=== PATIENT | female | born 1980 | race American Indian/Alaskan Native ===

== ENCOUNTER 2016-09-18 10:52 | Emergency (ER) | payer MEDICARE ==
[2016-09-18 11:32] LABS: Basophils % (Auto) 0.4 % (0.0-1.8); Eosinophils % (Auto) 1.3 % (0.0-4.3); Hematocrit 38.5 % (30.3-42.9); Hemoglobin 11.9 gm/dl (10.1-14.3); Mean Corpuscular HGB Conc 31 % (30-34); Mean Corpuscular Volume 82 fl (79-97); Platelet Count 298 K/mm3 (140-440); Red Blood Count 4.68 M/mm3 (3.65-5.03); White Blood Count 4.4 K/mm3 (4.5-11.0)
[2016-09-18 11:34] LABS: Mean Corpuscular Hemoglobin 25 pg (28-32)
[2016-09-18 11:35] LABS: Alanine Aminotransferase 7 units/L (7-56); Albumin 4.2 g/dL (3.9-5); Albumin/Globulin Ratio 0.9 %; Alkaline Phosphatase 58 units/L (35-129); Anion Gap 20 mmol/L; Bilirubin,Total 0.6 mg/dL (0.1-1.2); Blood Urea Nitrogen 6 mg/dL (7-17); Calcium 9.1 mg/dL (8.4-10.2); Carbon Dioxide 19 mmol/L (22-30); Chloride 98.9 mmol/L (98-107); Glucose 89 mg/dL (65-100); Lipase 27 units/L (13-60); Potassium 3.6 mmol/L (3.6-5.0); Sodium 134 mmol/L (137-145)
[2016-09-18 17:52] LABS: Bilirubin,Urine NEG (Negative); Blood,Urine SM (Negative); Ketones,Urine NEG (Negative); Leukocyte Esterase,Urine LG (Negative); Mucus,Urine 3+ /HPF; Nitrite,Urine NEG (Negative); Urobilinogen,Urine < 2.0 mg/dL (<2.0)
[2016-09-18] MEDS ORDERED: DILAUDID IV ONE (19:17)
[2016-09-18] MEDS ORDERED: NACL 0.9% 1000 ML 1,000 ML IV ONE (19:17)
[2016-09-18] MEDS ORDERED: ZOFRAN IV ONE (19:17)
[2016-09-18] MEDS ORDERED: PEPCID IV ONE (19:17)
--- NOTE | 2016-09-18 19:18 | Emergency Department Report ---
ED General Adult HPI - General Chief complaint: Abdominal Pain Stated complaint: CROHNS DISEASE/VOMITTING/ABD PAIN Time Seen by Provider: 09/18/16 19:10 Source: patient, RN notes reviewed, old records reviewed Mode of arrival: Ambulatory Limitations: No Limitations - History of Present Illness Initial comments: Gastroenterology: Dr. Ammy Yoder Past medical history: Crohn's disease, right lower quadrant ostomy, not on any chronic medication at this time. This is a 36-year-old female. She is previously unknown to me. She presents to the ER complaining of epigastric, and right-sided abdominal pain. Abdominal pain is epigastric and upper. It is present for a few days. It feels consistent with prior episodes of Crohn's disease pain as per the patient. Mild nausea. Patient reports liquid discharge from her ostomy. There is no hematemesis. There is no bright red blood. No vaginal discharge. No irritative or obstructive urinary symptoms. Patient reports her symptoms typically improve with IV fluids, nausea medication and hydromorphone. Of note , patient has had multiple similar visits for this presentation in the past year. -: Gradual Location: abdomen Radiation: non-radiation Quality: aching Consistency: constant Improves with: medication, rest Worsens with: movement Associated Symptoms: loss of appetite, nausea/vomiting. denies: diaphoresis, fever/chills - Related Data Previous Rx's Medication Instructions Recorded Last Taken Type Ondansetron [Zofran Odt] 4 mg PO Q8H PRN #10 tab.rapdis 06/27/16 Unknown Rx oxyCODONE /ACETAMINOPHEN [Percocet 1 tab PO Q6HR PRN #14 tablet 06/27/16 Unknown Rx 5/325] Dicyclomine [Bentyl] 10 mg PO QID PRN #20 capsule 09/18/16 Unknown Rx Ondansetron [Zofran Odt] 4 mg PO QID PRN #20 tab.rapdis 09/18/16 Unknown Rx Allergies Allergy/AdvReac Type Severity Reaction Status Date / Time aspirin Allergy Itching Verified 06/27/16 05:40 ibuprofen [From Motrin] Allergy Rash Verified 06/27/16 05:40 infliximab [From Remicade] Allergy ITCHING Verified 06/27/16 05:40 AND SWELLING morphine Allergy Rash Verified 06/27/16 05:40 naproxen sodium [From Aleve] Allergy Itching Verified 06/27/16 05:40 ED Review of Systems ROS: Stated complaint: CROHNS DISEASE/VOMITTING/ABD PAIN Other details as noted in HPI Constitutional: denies: fever, malaise Eyes: denies: eye discharge Respiratory: denies: cough Cardiovascular: denies: chest pain Gastrointestinal: abdominal pain Genitourinary: denies: dysuria Musculoskeletal: denies: back pain Skin: denies: lesions Neurological: denies: weakness Psychiatric: as per HPI ED Past Medical Hx - Past Medical History Previous Medical History?: Yes Hx Hypertension: No Hx Heart Attack/AMI: No Hx Congestive Heart Failure: No Hx GERD: Yes (RARELY) Hx Renal Disease: No Hx Arthritis: Yes (lower back) Hx Seizures: No Hx Asthma: Yes (mild case) Hx HIV: No Additional medical history: Crohn's - Surgical History Past Surgical History?: Yes Hx Pacemaker: No Hx Internal Defibrillator: No Hx Cholecystectomy: Yes Hx Breast Surgery: Yes (Breast reduction) Additional Surgical History: bowel resection & colostomy 2003. Proctocolectomy with ileostomy placement January 2015 - Social History Smoking Status: Never Smoker Substance Use Type: None - Medications Home Medications: Home Medications Medication Instructions Recorded Confirmed Last Taken Type Ondansetron [Zofran Odt] 4 mg PO Q8H PRN #10 tab.rapdis 06/27/16 Unknown Rx oxyCODONE /ACETAMINOPHEN [Percocet 1 tab PO Q6HR PRN #14 tablet 06/27/16 Unknown Rx 5/325] Dicyclomine [Bentyl] 10 mg PO QID PRN #20 capsule 09/18/16 Unknown Rx Ondansetron [Zofran Odt] 4 mg PO QID PRN #20 tab.rapdis 09/18/16 Unknown Rx ED Physical Exam - General Limitations: No Limitations General appearance: alert, in no apparent distress - Head Head exam: Present: atraumatic, normocephalic - Eye Eye exam: Present: normal appearance, EOMI. Absent: nystagmus - ENT ENT exam: Present: normal exam, normal orophraynx, mucous membranes moist, normal external ear exam - Neck Neck exam: Present: normal inspection, full ROM. Absent: tenderness, meningismus - Respiratory Respiratory exam: Present: normal lung sounds bilaterally. Absent: respiratory distress, wheezes, rales, rhonchi, stridor, chest wall tenderness - Cardiovascular Cardiovascular Exam: Present: regular rate, normal rhythm, normal heart sounds. Absent: bradycardia, tachycardia, irregular rhythm, systolic murmur, diastolic murmur, rubs, gallop - GI/Abdominal GI/Abdominal exam: Present: soft, tenderness (there is minimal epigastric tenderness. There is no lower abdominal tenderness. There is no right upper quadrant tenderness. There is negative Ambrose sign.), normal bowel sounds, other (right lower quadrant ostomy noted. No redness, pus or streaking.). Absent: distended, guarding, rebound, rigid, pulsatile mass - Extremities Exam Extremities exam: Present: normal inspection, full ROM, normal capillary refill. Absent: tenderness, pedal edema, joint swelling, calf tenderness - Back Exam Back exam: Present: normal inspection, full ROM. Absent: tenderness, CVA tenderness (R), CVA tenderness (L), muscle spasm, paraspinal tenderness, vertebral tenderness - Neurological Exam Neurological exam: Present: alert, oriented X3, normal gait, other (Extraocular movements intact. Tongue midline. No facial droop. Facial sensation intact to light touch in the V1, V2, V3 distribution bilaterally. 5 and 5 strength in 4 extremities.. Sensation is intact to light touch in 4 extremities.). Absent : motor sensory deficit - Psychiatric Psychiatric exam: Present: normal affect, normal mood - Skin Skin exam: Present: warm, dry, intact, normal color. Absent: rash ED Course Vital Signs 09/18/16 09/18/16 09/18/16 10:56 19:17 20:01 Temperature 98.1 F 97.8 F Pulse Rate 111 H 87 Respiratory 18 14 Rate Blood Pressure 115/79 Blood Pressure 106/69 [Left] O2 Sat by Pulse 100 97 97 Oximetry 09/18/16 23:00 Temperature 98.7 F Pulse Rate 92 H Respiratory 18 Rate Blood Pressure Blood Pressure 122/67 [Left] O2 Sat by Pulse 99 Oximetry - Reevaluation(s) Reevaluation #1: 09/18/16 20:42 Differential diagnosis: Cyclic vomiting syndrome, narcotic bowel syndrome, urinary tract infection, Crohn's flare, GERD/gastritis Assessment and plan: 36-year-old female with an acute flare of her chronic abdominal pain. She has had multiple evaluations for this in the past. She is afebrile with reassuring vital signs. When I walk into the room, she is playing on the cellular phone with no active vomiting. Her abdominal examination is benign. Laboratory studies are unremarkable. Urinalysis is contaminated, patient denies urinary symptoms. She felt improved after symptomatically therapy. I don't believe she requires advanced imaging at this time, as she has presented multiple times for similar complaints in the past. She will be discharged with pain medication, nausea medication, instructions to follow up with outpatient gastroenterology. She is clinically sober, does not appear to be drug seeking, walked with a steady gait. ED Medical Decision Making - Lab Data Result diagrams: 09/18/16 11:06 09/18/16 11:06 Vital Signs 09/18/16 09/18/16 09/18/16 10:56 19:17 20:01 Temperature 98.1 F 97.8 F Pulse Rate 111 H 87 Respiratory 18 14 Rate Blood Pressure 115/79 Blood Pressure 106/69 [Left] O2 Sat by Pulse 100 97 97 Oximetry Labs 09/18/16 09/18/16 09/18/16 11:06 11:06 16:45 WBC 4.4 L RBC 4.68 Hgb 11.9 Hct 38.5 MCV 82 MCH 25 L MCHC 31 RDW 19.0 H Plt Count 298 Lymph % (Auto) 38.8 H [place] % (Auto) 9.1 H Eos % (Auto) 1.3 Baso % (Auto) 0.4 Lymph # 1.7 [place] # 0.4 Eos # 0.1 Baso # 0.0 Seg Neutrophils % 50.4 Seg Neutrophils # 2.2 Sodium 134 L Potassium 3.6 Chloride 98.9 Carbon Dioxide 19 L Anion Gap 20 BUN 6 L Creatinine 0.5 L Estimated GFR > 60 BUN/Creatinine Ratio 12.00 Glucose 89 Calcium 9.1 Total Bilirubin 0.6 AST 18 ALT 7 Alkaline Phosphatase 58 Total Protein 9.0 H Albumin 4.2 Albumin/Globulin Ratio 0.9 Lipase 27 Urine Color Yellow Urine Turbidity Slightly-cloudy Urine pH 6.0 Ur Specific [place] 1.020 Urine Protein 30 mg/dl Urine Glucose (UA) Neg Urine Ketones Neg Urine Blood Sm Urine Nitrite Neg Urine Bilirubin Neg Urine Urobilinogen < 2.0 Ur Leukocyte Esterase Lg Urine WBC (Auto) 8.0 H Urine RBC (Auto) 3.0 U Epithel Cells (Auto) 25.0 H Urine Mucus 3+ Urine HCG, Qual Negative Critical care attestation.: If time is entered above; I have spent that time in minutes in the direct care of this critically ill patient, excluding procedure time. ED Disposition Clinical Impression: Abdominal pain Qualifiers: Abdominal location: generalized Qualified Code(s): R10.84 - Generalized abdominal pain Disposition: DISCHARGED TO HOME OR SELFCARE Is pt being admited?: No Does the pt Need Aspirin: No Condition: Good Instructions: Abdominal Pain (ED) Additional Instructions: Take pain medication, nausea medication as directed. Follow up with a primary care doctor or product technician within the next week. Return to the ER right away with new pain, worsening pain, migration of pain, fevers or chills, nausea or vomiting, inability to tolerate liquid feeds. Prescriptions: Dicyclomine [Bentyl] 10 mg PO QID PRN #20 capsule PRN Reason: Pain Ondansetron [Zofran Odt] 4 mg PO QID PRN #20 tab.rapdis PRN Reason: Nausea Referrals: AMMY YODER MD [Primary Care Provider] - 3-5 Days
[2016-09-18 23:43] VITALS: BP 122/67
== END 2016-09-18 22:35 | disposition home or self-care (01) ==
LOC: ED 10:52
DX: R10.84 Generalized abdominal pain (principal); K21.9 Gastro-esophageal reflux disease without esophagitis; M19.90 Unspecified osteoarthritis, unspecified site; J45.909 Unspecified asthma, uncomplicated; K50.90 Crohn's disease, unspecified, without complications; Z90.89 Acquired absence of other organs; Z90.49 Acquired absence of other specified parts of digestive tract; Z88.6 Allergy status to analgesic agent; Z88.8 Allergy status to other drugs, medicaments and biological substances
CPT/HCPCS: 36415; 80053; 81001; 81025; 83690; 85025; 96361; 96374; 96375; 99283; J1170; J2405; J7030

== ENCOUNTER 2016-11-23 07:34 | Emergency (ER) | payer MEDICARE ==
[2016-11-23 07:43] VITALS: BP 114/80
[2016-11-23 08:17] LABS: Basophils % (Auto) 0.4 % (0.0-1.8); Hematocrit 38.5 % (30.3-42.9); Hemoglobin 12.2 gm/dl (10.1-14.3); Mean Corpuscular HGB Conc 32 % (30-34); Mean Corpuscular Hemoglobin 27 pg (28-32); Mean Corpuscular Volume 86 fl (79-97); Platelet Count 269 K/mm3 (140-440); Red Blood Count 4.47 M/mm3 (3.65-5.03); Red Cell Distribution Width 19.3 % (13.2-15.2); White Blood Count 8.3 K/mm3 (4.5-11.0)
[2016-11-23 08:33] LABS: Bilirubin,Urine NEG (Negative); Blood,Urine NEG (Negative); Ketones,Urine TR mg/dL (Negative); Leukocyte Esterase,Urine SM (Negative); Mucus,Urine 3+ /HPF; Nitrite,Urine NEG (Negative); Urobilinogen,Urine < 2.0 mg/dL (<2.0)
[2016-11-23 08:41] LABS: Alanine Aminotransferase 9 units/L (7-56); Albumin 4.4 g/dL (3.9-5); Albumin/Globulin Ratio 1.1 %; Alkaline Phosphatase 60 units/L (35-129); Anion Gap 20 mmol/L; Bilirubin,Total 0.5 mg/dL (0.1-1.2); Blood Urea Nitrogen 12 mg/dL (7-17); Calcium 9.8 mg/dL (8.4-10.2); Carbon Dioxide 24 mmol/L (22-30); Chloride 100.4 mmol/L (98-107); Glucose 91 mg/dL (65-100); Lipase 23 units/L (13-60); Potassium 4.1 mmol/L (3.6-5.0); Sodium 140 mmol/L (137-145); Total Protein 8.5 g/dL (6.3-8.2)
--- NOTE | 2016-11-24 14:57 | ED Elopement Review ---
ED Pt Elopement review - Results review Lab results: Laboratory Tests 11/23/16 11/23/16 11/23/16 07:51 07:51 07:57 WBC 8.3 RBC 4.47 Hgb 12.2 Hct 38.5 MCV 86 MCH 27 L MCHC 32 RDW 19.3 H Plt Count 269 Lymph % (Auto) 25.2 [place] % (Auto) 7.8 H Eos % (Auto) 2.0 Baso % (Auto) 0.4 Lymph # 2.1 [place] # 0.6 Eos # 0.2 Baso # 0.0 Seg Neutrophils % 64.6 Seg Neutrophils # 5.3 Sodium 140 Potassium 4.1 Chloride 100.4 Carbon Dioxide 24 Anion Gap 20 BUN 12 Creatinine 0.6 L Estimated GFR > 60 BUN/Creatinine Ratio 20.00 Glucose 91 Calcium 9.8 Total Bilirubin 0.5 AST 13 ALT 9 Alkaline Phosphatase 60 Total Protein 8.5 H Albumin 4.4 Albumin/Globulin Ratio 1.1 Lipase 23 Urine Color Yellow Urine Turbidity Clear Urine pH 5.0 Ur Specific [place] 1.031 H Urine Protein 30 mg/dl Urine Glucose (UA) Neg Urine Ketones Tr Urine Blood Neg Urine Nitrite Neg Urine Bilirubin Neg Urine Urobilinogen < 2.0 Ur Leukocyte Esterase Sm Urine WBC (Auto) 4.0 Urine RBC (Auto) 3.0 U Epithel Cells (Auto) 3.0 Urine Mucus 3+ Urine HCG, Qual Negative - Call Back decision Pt Call Back Decision: Call pt to return to ED KARY (abdominal pain and tachycardia should be further evaluated)
== END 2016-11-24 00:53 | disposition left against medical advice (07) ==
LOC: ED 07:34
DX: R10.9 Unspecified abdominal pain (principal); R11.0 Nausea; Z53.21 Procedure and treatment not carried out due to patient leaving prior to being seen by health care provider
CPT/HCPCS: 36415; 80053; 81001; 81025; 83690; 85025

== ENCOUNTER 2016-11-25 04:02 | Emergency (ER) | payer MEDICARE ==
[2016-11-25] MEDS ORDERED: TYLENOL PO ONE (04:27)
[2016-11-25 05:09] LABS: Basophils % (Auto) 0.4 % (0.0-1.8); Eosinophils % (Auto) 1.4 % (0.0-4.3); Hemoglobin 12.3 gm/dl (10.1-14.3); White Blood Count 6.4 K/mm3 (4.5-11.0)
[2016-11-25 05:14] LABS: Alanine Aminotransferase 10 units/L (7-56); Albumin 4.3 g/dL (3.9-5); Albumin/Globulin Ratio 1.1 %; Alkaline Phosphatase 59 units/L (35-129); Anion Gap 18 mmol/L; Bilirubin,Total 0.3 mg/dL (0.1-1.2); Blood Urea Nitrogen 12 mg/dL (7-17); Calcium 9.1 mg/dL (8.4-10.2); Carbon Dioxide 24 mmol/L (22-30); Chloride 97.4 mmol/L (98-107); Glucose 94 mg/dL (65-100); Potassium 3.5 mmol/L (3.6-5.0); Sodium 136 mmol/L (137-145); Total Protein 8.3 g/dL (6.3-8.2)
[2016-11-25 05:16] LABS: Mean Corpuscular HGB Conc 32 % (30-34); Mean Corpuscular Hemoglobin 28 pg (28-32); Mean Corpuscular Volume 87 fl (79-97); Platelet Count 290 K/mm3 (140-440); Red Blood Count 4.48 M/mm3 (3.65-5.03); Red Cell Distribution Width 19.1 % (13.2-15.2)
--- NOTE | 2016-11-25 07:32 | Emergency Department Report ---
ED General Adult HPI - General Chief complaint: Abdominal Pain Stated complaint: ABDOMINAL PAIN, NAUSEA Time Seen by Provider: 11/25/16 06:26 Source: patient Mode of arrival: Ambulatory Limitations: No Limitations - History of Present Illness Initial comments: The patient has a history of Crohn's disease with a colostomy. She complains of a vague intermittent abdominal pain which is been present for 4 days. It is mostly towards the right side of her abdomen. She had a previous CT for similar pain in the past and it was negative and 2015. She denies any signs of GI bleeding. She denies nausea vomiting or fever. She came here 2 days ago and had essentially normal laboratory tests. She did not wait for exam. She states that she called Dr. Yoder office and was directed to come to the emergency department because he is out of town. -: days(s) Location: abdomen, right Radiation: non-radiation Quality: aching Consistency: intermittent Improves with: none Worsens with: none Associated Symptoms: denies other symptoms Treatments Prior to Arrival: none - Related Data Previous Rx's Medication Instructions Recorded Last Taken Type Ondansetron [Zofran Odt] 4 mg PO Q8H PRN #10 tab.rapdis 06/27/16 Unknown Rx oxyCODONE /ACETAMINOPHEN [Percocet 1 tab PO Q6HR PRN #14 tablet 06/27/16 Unknown Rx 5/325] Dicyclomine [Bentyl] 10 mg PO QID PRN #20 capsule 09/18/16 Unknown Rx Ondansetron [Zofran Odt] 4 mg PO QID PRN #20 tab.rapdis 09/18/16 Unknown Rx Dicyclomine [Bentyl] 10 mg PO QID #7 capsule 11/25/16 Unknown Rx HYDROcodone/APAP 5-325 [[place] 1 each PO Q4HR PRN #10 tablet 11/25/16 Unknown Rx 5/325] Ondansetron [Zofran Odt] 4 mg PO Q8H PRN #7 tab.rapdis 11/25/16 Unknown Rx Allergies Allergy/AdvReac Type Severity Reaction Status Date / Time aspirin Allergy Itching Verified 06/27/16 05:40 ibuprofen [From Motrin] Allergy Rash Verified 06/27/16 05:40 infliximab [From Remicade] Allergy ITCHING Verified 06/27/16 05:40 AND SWELLING morphine Allergy Rash Verified 06/27/16 05:40 naproxen sodium [From Aleve] Allergy Itching Verified 06/27/16 05:40 ED Review of Systems ROS: Stated complaint: ABDOMINAL PAIN, NAUSEA Other details as noted in HPI Constitutional: denies: chills, fever Eyes: denies: eye pain, eye discharge, vision change ENT: denies: ear pain, throat pain Respiratory: denies: cough, shortness of breath, wheezing Cardiovascular: denies: chest pain, palpitations Endocrine: no symptoms reported Gastrointestinal: as per HPI, abdominal pain. denies: nausea, vomiting, diarrhea, constipation, hematemesis, melena, hematochezia Genitourinary: denies: urgency, dysuria, discharge Musculoskeletal: denies: back pain, joint swelling, arthralgia Skin: denies: rash, lesions Neurological: denies: headache, weakness, paresthesias Psychiatric: denies: anxiety, depression Hematological/Lymphatic: denies: easy bleeding, easy bruising ED Past Medical Hx - Past Medical History Previous Medical History?: Yes Hx Hypertension: No Hx Heart Attack/AMI: No Hx Congestive Heart Failure: No Hx GERD: Yes (RARELY) Hx Renal Disease: No Hx Arthritis: Yes (lower back) Hx Seizures: No Hx Asthma: Yes (mild case) Hx HIV: No Additional medical history: Crohn's - Surgical History Past Surgical History?: Yes Hx Pacemaker: No Hx Internal Defibrillator: No Hx Cholecystectomy: Yes Hx Breast Surgery: Yes (Breast reduction) Additional Surgical History: bowel resection & colostomy 2003. Proctocolectomy with ileostomy placement January 2015 - Social History Smoking Status: Never Smoker Substance Use Type: None - Medications Home Medications: Home Medications Medication Instructions Recorded Confirmed Last Taken Type Ondansetron [Zofran Odt] 4 mg PO Q8H PRN #10 tab.rapdis 06/27/16 Unknown Rx oxyCODONE /ACETAMINOPHEN [Percocet 1 tab PO Q6HR PRN #14 tablet 06/27/16 Unknown Rx 5/325] Dicyclomine [Bentyl] 10 mg PO QID PRN #20 capsule 09/18/16 Unknown Rx Ondansetron [Zofran Odt] 4 mg PO QID PRN #20 tab.rapdis 09/18/16 Unknown Rx Dicyclomine [Bentyl] 10 mg PO QID #7 capsule 11/25/16 Unknown Rx HYDROcodone/APAP 5-325 [[place] 1 each PO Q4HR PRN #10 tablet 11/25/16 Unknown Rx 5/325] Ondansetron [Zofran Odt] 4 mg PO Q8H PRN #7 tab.rapdis 11/25/16 Unknown Rx ED Physical Exam - General Limitations: No Limitations General appearance: alert, in no apparent distress - Head Head exam: Present: atraumatic, normocephalic - Eye Eye exam: Present: normal appearance, PERRL, EOMI. Absent: scleral icterus - ENT ENT exam: Present: normal exam, mucous membranes moist - Neck Neck exam: Present: normal inspection - Respiratory Respiratory exam: Present: normal lung sounds bilaterally. Absent: respiratory distress - Cardiovascular Cardiovascular Exam: Present: regular rate, normal rhythm. Absent: systolic murmur, diastolic murmur, rubs, gallop - GI/Abdominal GI/Abdominal exam: Present: soft, normal bowel sounds, other (the ostomy is producing normal stool the site looks normal). Absent: distended, tenderness, guarding, rebound, rigid - Rectal Rectal exam: Present: deferred - Extremities Exam Extremities exam: Present: normal inspection - Back Exam Back exam: Present: normal inspection - Neurological Exam Neurological exam: Present: alert, oriented X3, CN II-XII intact. Absent: motor sensory deficit - Psychiatric Psychiatric exam: Present: normal affect, normal mood - Skin Skin exam: Present: warm, dry, intact, normal color. Absent: rash ED Course Vital Signs 11/25/16 11/25/16 11/25/16 04:19 04:30 06:24 Temperature 98.3 F Pulse Rate 100 H 81 Respiratory 20 20 18 Rate Blood Pressure 106/79 Blood Pressure 112/75 [Left] O2 Sat by Pulse 100 100 Oximetry ED Medical Decision Making - Lab Data Result diagrams: 11/25/16 04:34 11/25/16 04:34 Laboratory Results - last 24 hr 11/25/16 11/25/16 04:34 04:34 WBC 6.4 RBC 4.48 Hgb 12.3 Hct 39.0 MCV 87 MCH 28 MCHC 32 RDW 19.1 H Plt Count 290 Lymph % (Auto) 42.2 H [place] % (Auto) 7.4 H Eos % (Auto) 1.4 Baso % (Auto) 0.4 Lymph # 2.7 [place] # 0.5 Eos # 0.1 Baso # 0.0 Seg Neutrophils % 48.6 Seg Neutrophils # 3.1 Sodium 136 L Potassium 3.5 L Chloride 97.4 L Carbon Dioxide 24 Anion Gap 18 BUN 12 Creatinine 0.6 L Estimated GFR > 60 BUN/Creatinine Ratio 20.00 Glucose 94 Calcium 9.1 Total Bilirubin 0.3 AST 14 ALT 10 Alkaline Phosphatase 59 Total Protein 8.3 H Albumin 4.3 Albumin/Globulin Ratio 1.1 - Medical Decision Making Patient has had 2 sets of essentially normal labs except for a slight to low normal sodium and potassium. I do not find criteria for a Crohn's flare. She will be treated with symptomatic medication and referred to her GI physician with appropriate return criteria. Critical care attestation.: If time is entered above; I have spent that time in minutes in the direct care of this critically ill patient, excluding procedure time. ED Disposition Clinical Impression: Crohns disease Qualifiers: Gastrointestinal tract location: unspecified location Digestive disease complication type: without complication Qualified Code(s): K50.90 - Crohn's disease, unspecified, without complications Abdominal pain Qualifiers: Abdominal location: generalized Qualified Code(s): R10.84 - Generalized abdominal pain Disposition: DISCHARGED TO HOME OR SELFCARE Is pt being admited?: No Does the pt Need Aspirin: No Condition: Stable Instructions: Abdominal Pain (ED), Crohn Disease (ED) Additional Instructions: Return any acute change or problem particularly if there is fever vomiting or increased pain. Rx as directed. Follow-up with Dr. Yoder group. Prescriptions: Dicyclomine [Bentyl] 10 mg PO QID #7 capsule HYDROcodone/APAP 5-325 [[place] 5/325] 1 each PO Q4HR PRN #10 tablet PRN Reason: Pain Ondansetron [Zofran Odt] 4 mg PO Q8H PRN #7 tab.rapdis PRN Reason: Nausea Referrals: PRIMARY CARE, [Primary Care Provider] - 3-5 Days AMMY YODER MD [Staff Physician] - 2-3 Days Time of Disposition: 07:32
[2016-11-25] MEDS ORDERED: ZOFRAN ODT PO ONE (07:36)
[2016-11-25] MEDS ORDERED: PERCOCET 5/325 PO ONE (07:36)
[2016-11-25 08:13] VITALS: BP 113/75
[2016-11-25 08:36] LABS: Bilirubin,Urine NEG (Negative); Blood,Urine NEG (Negative); Ketones,Urine NEG (Negative); Leukocyte Esterase,Urine MOD (Negative); Mucus,Urine 3+ /HPF; Nitrite,Urine NEG (Negative); Urobilinogen,Urine < 2.0 mg/dL (<2.0)
== END 2016-11-25 08:14 | disposition home or self-care (01) ==
LOC: ED 04:02
DX: K50.90 Crohn's disease, unspecified, without complications (principal); R10.84 Generalized abdominal pain; K21.9 Gastro-esophageal reflux disease without esophagitis; J45.909 Unspecified asthma, uncomplicated; M19.90 Unspecified osteoarthritis, unspecified site; Z88.5 Allergy status to narcotic agent; Z88.8 Allergy status to other drugs, medicaments and biological substances; Z88.6 Allergy status to analgesic agent
CPT/HCPCS: 36415; 80053; 81001; 81025; 85025; 99283; Q0162

== ENCOUNTER 2019-07-16 08:34 | Emergency (ER) | payer MEDICARE ==
[2019-07-16 09:45] LABS: Bacteria,Urine 1+ /HPF (Negative); Bilirubin,Urine NEG (Negative); Blood,Urine SM (Negative); Color,Urine Yellow (Yellow); Mucus,Urine 1+ /HPF; Protein,Urine <15 mg/dL mg/dL (Negative); Urobilinogen,Urine < 2.0 mg/dL (<2.0)
[2019-07-16 09:52] LABS: HCG Qualitative,Urine Negative (Negative)
[2019-07-16] MEDS ORDERED: FAMOTIDINE 20 MG/2 ML INJ IV ONE (09:56)
[2019-07-16] MEDS ORDERED: dexAMETHasone 20 MG/5 ML VIAL IV ONE (09:56)
[2019-07-16] MEDS ORDERED: SODIUM CHLORIDE 0.9% 1000 ML 1,000 ML IV ONE ×2 (09:56→11:44)
[2019-07-16] MEDS ORDERED: ONDANSETRON 4 MG/2 ML INJ IV ONE (09:57)
[2019-07-16] MEDS ORDERED: HYDROmorphone 1 MG/1 ML INJ IV ONE ×2 (09:59→12:45)
--- NOTE | 2019-07-16 10:08 | Emergency Department Report ---
ED Abdominal Pain HPI - General Chief Complaint: Abdominal Pain Stated Complaint: N/V/ABD PAIN Time Seen by Provider: 07/16/19 09:43 Source: patient Mode of arrival: Ambulatory Limitations: No Limitations - History of Present Illness Initial Comments: 39-year-old -[place] female patient with history of Crohn's disease and colostomy bag presents with complaints of mid abdominal pain and nausea and vomiting or the last 2-3 days. Patient follows with Dr. Vuong, gastroenterology. She rates her pain as a 8/10 in severity and describes it as sharp. She denies any hematemesis/off recurrent emesis, melena/hematochezia in her colostomy bag, cough/congestion, chest pain, or fever/chills/sweats. Patient states this feels like a Crohn's flare. - Related Data Previous Rx's Medication Instructions Recorded Last Taken Type Ondansetron [Zofran Odt] 4 mg PO Q8H PRN #10 tab.rapdis 06/27/16 Unknown Rx oxyCODONE /ACETAMINOPHEN [Percocet 1 tab PO Q6HR PRN #14 tablet 06/27/16 Unknown Rx 5/325] Dicyclomine [Bentyl] 10 mg PO QID PRN #20 capsule 09/18/16 Unknown Rx Ondansetron [Zofran Odt] 4 mg PO QID PRN #20 tab.rapdis 09/18/16 Unknown Rx Dicyclomine [Bentyl] 10 mg PO QID #7 capsule 11/25/16 Unknown Rx HYDROcodone/APAP 5-325 [[place] 1 each PO Q4HR PRN #10 tablet 11/25/16 Unknown Rx 5/325] Ondansetron [Zofran Odt] 4 mg PO Q8H PRN #7 tab.rapdis 11/25/16 Unknown Rx Ondansetron [Zofran Odt] 4 mg PO Q6HR PRN #15 tab.rapdis 07/16/19 Unknown Rx Sulfamethoxazole/Trimethoprim 1 each PO BID 3 Days #6 tablet 07/16/19 Unknown Rx [Bactrim DS TAB] Allergies Allergy/AdvReac Type Severity Reaction Status Date / Time aspirin Allergy Itching Verified 07/16/19 08:37 ibuprofen [From Motrin] Allergy Rash Verified 07/16/19 08:37 infliximab [From Remicade] Allergy ITCHING Verified 07/16/19 08:37 AND SWELLING morphine Allergy Rash Verified 07/16/19 08:37 naproxen sodium [From Aleve] Allergy Itching Verified 07/16/19 08:37 ED Review of Systems ROS: Stated complaint: N/V/ABD PAIN Other details as noted in HPI Comment: All other systems reviewed and negative Constitutional: denies: chills, fever Gastrointestinal: as per HPI ED Past Medical Hx - Past Medical History Previous Medical History?: Yes Hx Hypertension: No Hx Heart Attack/AMI: No Hx Congestive Heart Failure: No Hx GERD: Yes (RARELY) Hx Renal Disease: No Hx Arthritis: Yes (lower back) Hx Seizures: No Hx Asthma: Yes (mild case) Hx HIV: No Additional medical history: Crohn's - Surgical History Past Surgical History?: Yes Hx Pacemaker: No Hx Internal Defibrillator: No Hx Cholecystectomy: Yes Hx Breast Surgery: Yes (Breast reduction) Additional Surgical History: bowel resection & colostomy 2003. Proctocolectomy with ileostomy placement January 2015 - Social History Smoking Status: Unknown if ever smoked Substance Use Type: None - Medications Home Medications: Home Medications Medication Instructions Recorded Confirmed Last Taken Type Ondansetron [Zofran Odt] 4 mg PO Q8H PRN #10 tab.rapdis 06/27/16 Unknown Rx oxyCODONE /ACETAMINOPHEN [Percocet 1 tab PO Q6HR PRN #14 tablet 06/27/16 Unknown Rx 5/325] Dicyclomine [Bentyl] 10 mg PO QID PRN #20 capsule 09/18/16 Unknown Rx Ondansetron [Zofran Odt] 4 mg PO QID PRN #20 tab.rapdis 09/18/16 Unknown Rx Dicyclomine [Bentyl] 10 mg PO QID #7 capsule 11/25/16 Unknown Rx HYDROcodone/APAP 5-325 [[place] 1 each PO Q4HR PRN #10 tablet 11/25/16 Unknown Rx 5/325] Ondansetron [Zofran Odt] 4 mg PO Q8H PRN #7 tab.rapdis 11/25/16 Unknown Rx Ondansetron [Zofran Odt] 4 mg PO Q6HR PRN #15 tab.rapdis 07/16/19 Unknown Rx Sulfamethoxazole/Trimethoprim 1 each PO BID 3 Days #6 tablet 07/16/19 Unknown Rx [Bactrim DS TAB] ED Physical Exam - General Limitations: No Limitations General appearance: alert, in no apparent distress - Head Head exam: Present: atraumatic, normocephalic - Eye Eye exam: Present: normal appearance, PERRL. Absent: scleral icterus - ENT ENT exam: Present: normal orophraynx, mucous membranes moist - Neck Neck exam: Present: normal inspection - Respiratory Respiratory exam: Present: normal lung sounds bilaterally. Absent: respiratory distress - Cardiovascular Cardiovascular Exam: Present: normal rhythm, tachycardia. Absent: systolic murmur, diastolic murmur, rubs, gallop - GI/Abdominal GI/Abdominal exam: Present: soft, tenderness, other (no BRB or melena noted in c olostomy bag). Absent: distended, rebound, rigid - Extremities Exam Extremities exam: Present: normal inspection - Back Exam Back exam: Present: normal inspection. Absent: CVA tenderness (L) - Neurological Exam Neurological exam: Present: alert, oriented X3 - Psychiatric Psychiatric exam: Present: normal affect, normal mood - Skin Skin exam: Present: warm, dry, intact, normal color. Absent: rash ED Course Vital Signs 07/16/19 08:41 Temperature 98.6 F Pulse Rate 105 H Respiratory 22 Rate Blood Pressure 124/70 O2 Sat by Pulse 99 Oximetry ED Medical Decision Making - Lab Data Result diagrams: 07/16/19 11:08 07/16/19 11:08 Lab Results 07/16/19 07/16/19 07/16/19 Range/Units 09:02 11:08 11:08 WBC 7.0 (4.5-11.0) K/mm3 RBC 4.02 (3.65-5.03) M/mm3 Hgb 11.2 (10.1-14.3) gm/dl Hct 34.5 (30.3-42.9) % MCV 86 (79-97) fl MCH 28 (28-32) pg MCHC 32 (30-34) % RDW 15.9 H (13.2-15.2) % Plt Count 252 (140-440) K/mm3 Lymph % (Auto) 17.9 (13.4-35.0) % [place] % (Auto) 7.7 H (0.0-7.3) % Eos % (Auto) 1.2 (0.0-4.3) % Baso % (Auto) 0.4 (0.0-1.8) % Lymph # 1.3 (1.2-5.4) K/mm3 [place] # 0.5 (0.0-0.8) K/mm3 Eos # 0.1 (0.0-0.4) K/mm3 Baso # 0.0 (0.0-0.1) K/mm3 Seg Neutrophils % 72.8 H (40.0-70.0) % Seg Neutrophils # 5.1 (1.8-7.7) K/mm3 Sodium 135 L (137-145) mmol/L Potassium 4.0 (3.6-5.0) mmol/L Chloride 96.0 L (98-107) mmol/L Carbon Dioxide 22 (22-30) mmol/L Anion Gap 21 mmol/L BUN 6 L (7-17) mg/dL Creatinine 0.6 L (0.7-1.2) mg/dL Estimated GFR > 60 ml/min BUN/Creatinine Ratio 10 % Glucose 95 (65-100) mg/dL Calcium 9.2 (8.4-10.2) mg/dL Total Bilirubin 0.40 (0.1-1.2) mg/dL AST 21 (5-40) units/L ALT 10 (7-56) units/L Alkaline Phosphatase 68 (35-129) units/L Total Protein 9.0 H (6.3-8.2) g/dL Albumin 4.4 (3.9-5) g/dL Albumin/Globulin Ratio 1.0 % Lipase (13-60) units/L Urine Color Yellow (Yellow) Urine Turbidity Slightly-cloudy (Clear) Urine pH 6.0 (5.0-7.0) Ur Specific [place] 1.016 (1.003-1.030) Urine Protein <15 mg/dl (Negative) mg/dL Urine Glucose (UA) Neg (Negative) mg/dL Urine Ketones Neg (Negative) mg/dL Urine Blood Sm (Negative) Urine Nitrite Neg (Negative) Urine Bilirubin Neg (Negative) Urine Urobilinogen < 2.0 (<2.0) mg/dL Ur Leukocyte Esterase Lg (Negative) Urine WBC (Auto) 7.0 H (0.0-6.0) /HPF Urine RBC (Auto) 6.0 (0.0-6.0) /HPF U Epithel Cells (Auto) 15.0 H (0-13.0) /HPF Urine Bacteria (Auto) 1+ (Negative) /HPF Urine Mucus 1+ /HPF Urine HCG, Qual Negative (Negative) 07/16/19 Range/Units 11:08 WBC (4.5-11.0) K/mm3 RBC (3.65-5.03) M/mm3 Hgb (10.1-14.3) gm/dl Hct (30.3-42.9) % MCV (79-97) fl MCH (28-32) pg MCHC (30-34) % RDW (13.2-15.2) % Plt Count (140-440) K/mm3 Lymph % (Auto) (13.4-35.0) % [place] % (Auto) (0.0-7.3) % Eos % (Auto) (0.0-4.3) % Baso % (Auto) (0.0-1.8) % Lymph # (1.2-5.4) K/mm3 [place] # (0.0-0.8) K/mm3 Eos # (0.0-0.4) K/mm3 Baso # (0.0-0.1) K/mm3 Seg Neutrophils % (40.0-70.0) % Seg Neutrophils # (1.8-7.7) K/mm3 Sodium (137-145) mmol/L Potassium (3.6-5.0) mmol/L Chloride (98-107) mmol/L Carbon Dioxide (22-30) mmol/L Anion Gap mmol/L BUN (7-17) mg/dL Creatinine (0.7-1.2) mg/dL Estimated GFR ml/min BUN/Creatinine Ratio % Glucose (65-100) mg/dL Calcium (8.4-10.2) mg/dL Total Bilirubin (0.1-1.2) mg/dL AST (5-40) units/L ALT (7-56) units/L Alkaline Phosphatase (35-129) units/L Total Protein (6.3-8.2) g/dL Albumin (3.9-5) g/dL Albumin/Globulin Ratio % Lipase 18 (13-60) units/L Urine Color (Yellow) Urine Turbidity (Clear) Urine pH (5.0-7.0) Ur Specific [place] (1.003-1.030) Urine Protein (Negative) mg/dL Urine Glucose (UA) (Negative) mg/dL Urine Ketones (Negative) mg/dL Urine Blood (Negative) Urine Nitrite (Negative) Urine Bilirubin (Negative) Urine Urobilinogen (<2.0) mg/dL Ur Leukocyte Esterase (Negative) Urine WBC (Auto) (0.0-6.0) /HPF Urine RBC (Auto) (0.0-6.0) /HPF U Epithel Cells (Auto) (0-13.0) /HPF Urine Bacteria (Auto) (Negative) /HPF Urine Mucus /HPF Urine HCG, Qual (Negative) - Radiology Data Radiology results: report reviewed CT ABDOMEN AND PELVIS WITH CONTRAST HISTORY: mid abdominal pain COMPARISON: None. TECHNIQUE: Axial CT images were obtained through the abdomen and pelvis after 100 cc of Omnipaque 300 intravenously. Sagittal and coronal reformatted images. All CT scans at this location are p erformed using CT dose reduction for ALARA by means of automated exposure control. FINDINGS: CT ABDOMEN: Lung Bases: Clear. Liver: No significant abnormality. Biliary: Cholecystectomy. Spleen: No significant abnormality. Unenlarged. Pancreas: No significant abnormality. Adrenals: No significant abnormality. Kidneys: No significant abnormality. Lymphatics: No lymphadenopathy. Vasculature: No significant abnormality. Bowel/Peritoneum: Colectomy changes are suspected, correlate with history. A diverting ileostomy is identified in the right lower quadrant. There is no evidence for bowel obstruction or focal inflammation. CT PELVIS: : The uterus and endometrium are unremarkable. Bilateral essure devices are in place. Bilateral ovarian cysts are suspected. A 4.9 x 3.4 cm cyst is noted in the cul-de-sac. This presumably represents a large right ovarian cyst. A 2.2 cm left ovarian cyst is identified. Small pelvic ascites. The bladder is partially empty but unremarkable. Osseous Structures: No significant abnormality. Additional Findings: None IMPRESSION: No acute inflammatory process is identified. Bilateral ovarian cysts as described. Small pelvic ascites. Surgical changes as described above. These correlate with the patient's surgical history. - Medical Decision Making 39-year-old female here today with complaints of mid abdominal pain and nausea and vomiting over the past few days. Patient has history of Crohn's with a colostomy bag. WBCs are normal. UA shows elevated WBCs with large amount of leukoesterase. Anion gap elevated at 21, 1 L fluid bolus given. Labs otherwise WNL. CT is without acute findings. A chest states pain is currently resolved. No vomiting observed during her ED stay here today. Heart rate now 86 on recheck. No respiratory distress noted. Will treat for UTI. Recommend patient follow-up with her licensed funeral director and embalmer, Dr. Vuong within 2-5 days. Discussed strict return precautions in detail with patient who states understanding. Critical care attestation.: If time is entered above; I have spent that time in minutes in the direct care of this critically ill patient, excluding procedure time. ED Disposition Clinical Impression: Pyuria Abdominal pain Qualifiers: Abdominal location: periumbilical Qualified Code(s): R10.33 - Periumbilical pain Disposition: TO HOME OR SELFCARE Is pt being admited?: No Condition: Stable Instructions: Abdominal Pain (ED), Urinary Tract Infection in Women (ED) Additional Instructions: Please follow-up with your licensed funeral director and embalmer (GI) within 2-5 days. Return to the emergency department if you experience any new or worsening sy mptoms. Prescriptions: Sulfamethoxazole/Trimethoprim [Bactrim DS TAB] 1 each PO BID 3 Days #6 tablet Ondansetron [Zofran Odt] 4 mg PO Q6HR PRN #15 tab.rapdis PRN Reason: Nausea Referrals: PRIMARY CARE, [Primary Care Provider] - 3-5 Days
[2019-07-16 11:20] LABS: Basophils % (Auto) 0.4 % (0.0-1.8); Eosinophils # (Auto) 0.1 K/mm3 (0.0-0.4); Eosinophils % (Auto) 1.2 % (0.0-4.3); Hematocrit 34.5 % (30.3-42.9); Hemoglobin 11.2 gm/dl (10.1-14.3); Lymphocytes # (Auto) 1.3 K/mm3 (1.2-5.4); Lymphocytes % (Auto) 17.9 % (13.4-35.0); Mean Corpuscular HGB Conc 32 % (30-34); Mean Corpuscular Volume 86 fl (79-97); Monocytes # (Auto) 0.5 K/mm3 (0.0-0.8); Monocytes % (Auto) 7.7 % (0.0-7.3); Platelet Count 252 K/mm3 (140-440); Red Blood Count 4.02 M/mm3 (3.65-5.03); Red Cell Distribution Width 15.9 % (13.2-15.2)
[2019-07-16 11:40] LABS: Alanine Aminotransferase 10 units/L (7-56); Albumin 4.4 g/dL (3.9-5); BUN/Creatinine Ratio 10; Blood Urea Nitrogen 6 mg/dL (7-17); Calcium 9.2 mg/dL (8.4-10.2); Hemolysis Index 75
--- NOTE | 2019-07-16 12:43 | Cat Scan Report ---
CT ABDOMEN AND PELVIS WITH CONTRAST HISTORY: mid abdominal pain COMPARISON: None. TECHNIQUE: Axial CT images were obtained through the abdomen and pelvis after 100 cc of Omnipaque 300 intravenously. Sagittal and coronal reformatted images. All CT scans at this location are performed using CT dose reduction for ALARA by means of automated exposure control. FINDINGS: CT ABDOMEN: Lung Bases: Clear. Liver: No significant abnormality. Biliary: Cholecystectomy. Spleen: No significant abnormality. Unenlarged. Pancreas: No significant abnormality. Adrenals: No significant abnormality. Kidneys: No significant abnormality. Lymphatics: No lymphadenopathy. Vasculature: No significant abnormality. Bowel/Peritoneum: Colectomy changes are suspected, correlate with history. A diverting ileostomy is i dentified in the right lower quadrant. There is no evidence for bowel obstruction or focal inflammati on. CT PELVIS: : The uterus and endometrium are unremarkable. Bilateral essure devices are in place. Bilateral ova ivett cysts are suspected. A 4.9 x 3.4 cm cyst is noted in the cul-de-sac. This presumably represents a large right ovarian cyst. A 2.2 cm left ovarian cyst is identified. Small pelvic ascites. The bladd er is partially empty but unremarkable. Osseous Structures: No significant abnormality. Additional Findings: None IMPRESSION: No acute inflammatory process is identified. Bilateral ovarian cysts as described. Small pelvic ascites. Surgical changes as described above. These correlate with the patient's surgical history. Signer Name: Jose Alberto Jurado Jr, MD Signed: 07/16/2019 12:39 PM Workstation Name: [id number]
[2019-07-16 13:31] VITALS: BP 120/70
== END 2019-07-16 13:21 | disposition home or self-care (01) ==
LOC: ED 08:34
DX: R10.33 Periumbilical pain (principal); R82.81 Pyuria; R11.2 Nausea with vomiting, unspecified; K21.9 Gastro-esophageal reflux disease without esophagitis; M19.90 Unspecified osteoarthritis, unspecified site; J45.909 Unspecified asthma, uncomplicated; K50.90 Crohn's disease, unspecified, without complications; Z79.899 Other long term (current) drug therapy; Z88.6 Allergy status to analgesic agent; Z88.8 Allergy status to other drugs, medicaments and biological substances
CPT/HCPCS: 36415; 74177; 80053; 81001; 81025; 83690; 85025; 87086; 96361; 96374; 96375; 96376; 99284; J1100; J1170; J2405; J7030; Q9967

== ENCOUNTER 2019-08-27 13:05 | Emergency (ER) | payer MEDICARE ==
--- NOTE | 2019-08-27 15:09 | Event Note ---
ED Screening Note ED Screening Note: n/v that began two days ago abdominal pain had a full colectomy no blood or pus in her ostomy output no fever PMHx chrohns allergy: nsaids, morphine, remicade is not taking anything for her crohns LNMP: a month ago, has an essure This initial assessment/diagnostic orders/clinical plan/treatment(s) is/are subject to change based on patients health status, clinical progression and re- assessment by fellow clinical providers in the ED. Further treatment and workup at subsequent clinical providers discretion. Patient/guardian urged not to elope from the ED as their condition may be serious if not clinically assessed and managed. Initial orders include: labs, UA, urine preg
[2019-08-27 15:11] VITALS: BP 111/71
[2019-08-27 15:46] LABS: Bilirubin,Urine NEG (Negative); Blood,Urine NEG (Negative); Color,Urine Yellow (Yellow); Mucus,Urine FEW /HPF; Protein,Urine <15 mg/dL mg/dL (Negative); Urobilinogen,Urine < 2.0 mg/dL (<2.0)
[2019-08-27 15:52] LABS: HCG Qualitative,Urine Negative (Negative)
[2019-08-27 16:18] LABS: Basophils % (Auto) 0.8 % (0.0-1.8); Eosinophils % (Auto) 0.2 % (0.0-4.3); Hematocrit 37.1 % (30.3-42.9); Hemoglobin 11.8 gm/dl (10.1-14.3); Lymphocytes # (Auto) 1.4 K/mm3 (1.2-5.4); Lymphocytes % (Auto) 30.1 % (13.4-35.0); Mean Corpuscular HGB Conc 32 % (30-34); Mean Corpuscular Volume 87 fl (79-97); Monocytes # (Auto) 0.3 K/mm3 (0.0-0.8); Monocytes % (Auto) 6.5 % (0.0-7.3); Platelet Count 309 K/mm3 (140-440); Red Blood Count 4.29 M/mm3 (3.65-5.03); Red Cell Distribution Width 15.7 % (13.2-15.2)
[2019-08-27] MEDS ORDERED: metroNIDAZOLE/NS 500 MG/100 ML 500 MG/100 ML BAG IV ONE (17:07)
[2019-08-27] MEDS ORDERED: SODIUM CHLORIDE 0.9% 1000 ML 1,000 ML IV ONE (17:07)
[2019-08-27] MEDS ORDERED: ONDANSETRON 4 MG/2 ML INJ IV ONE (17:08)
[2019-08-27] MEDS ORDERED: oxyCODONE /ACETAMINOPHEN 5-325MG TAB PO ONE (17:10)
--- NOTE | 2019-08-27 17:11 | Emergency Department Report ---
ED Abdominal Pain HPI - General Chief Complaint: Abdominal Pain Stated Complaint: NAUSEA/VOMITING/ABD PAIN Time Seen by Provider: 08/27/19 15:08 Source: patient Mode of arrival: Ambulatory Limitations: No Limitations - History of Present Illness Initial Comments: 39 YO COMES TO ER WITH A/C ABD PAIN AND KNOWN CHRONES DISEASE. LABS NORMAL. SCAN IN 08/01 NORMAL. STOOL TO COLOSTOMY IS NORMAL SOFT BROWN- NO BLOOD. NO VOMITING/DIARRHEA IN ER. NO FEVER. NO TACHYCARDIA. NO HYPOTENSION. PT NEEDS TO SEE HER GI MD - WE DISCUSSED MD Complaint: abdominal pain -: year(s) Location: diffuse Migration to: no migration Quality: cramping Consistency: intermittent Improves With: nothing Worsens With: nothing Associated Symptoms: denies other symptoms, nausea - Related Data Previous Rx's Medication Instructions Recorded Last Taken Type Dicyclomine [Bentyl] 10 mg PO QID PRN #20 capsule 08/27/19 Unknown Rx Ondansetron [Zofran Odt] 4 mg PO Q6HR PRN #15 tab.rapdis 08/27/19 Unknown Rx Sulfamethoxazole/Trimethoprim 1 each PO BID 3 Days #6 tablet 08/27/19 Unknown Rx [Bactrim DS TAB] Allergies Allergy/AdvReac Type Severity Reaction Status Date / Time aspirin Allergy Itching Verified 07/16/19 08:37 ibuprofen [From Motrin] Allergy Rash Verified 07/16/19 08:37 infliximab [From Remicade] Allergy ITCHING Verified 07/16/19 08:37 AND SWELLING morphine Allergy Rash Verified 07/16/19 08:37 naproxen sodium [From Aleve] Allergy Itching Verified 07/16/19 08:37 ED Review of Systems ROS: Stated complaint: NAUSEA/VOMITING/ABD PAIN Other details as noted in HPI Comment: All other systems reviewed and negative ED Past Medical Hx - Past Medical History Hx Hypertension: No Hx Heart Attack/AMI: No Hx Congestive Heart Failure: No Hx GERD: Yes (RARELY) Hx Renal Disease: No Hx Arthritis: Yes (lower back) Hx Seizures: No Hx Asthma: Yes (mild case) Hx HIV: No Additional medical history: Crohn's - Surgical History Past Surgical History?: Yes Hx Pacemaker: No Hx Internal Defibrillator: No Hx Cholecystectomy: Yes Hx Breast Surgery: Yes (Breast reduction) Additional Surgical History: bowel resection & colostomy 2003. Proctocolectomy with ileostomy placement January 2015 - Family History Family history: no significant - Social History Smoking Status: Never Smoker Substance Use Type: None - Medications Home Medications: Home Medications Medication Instructions Recorded Confirmed Last Taken Type Dicyclomine [Bentyl] 10 mg PO QID PRN #20 capsule 08/27/19 Unknown Rx Ondansetron [Zofran Odt] 4 mg PO Q6HR PRN #15 tab.rapdis 08/27/19 Unknown Rx Sulfamethoxazole/Trimethoprim 1 each PO BID 3 Days #6 tablet 08/27/19 Unknown Rx [Bactrim DS TAB] ED Physical Exam - General Limitations: No Limitations General appearance: alert, in no apparent distress - Head Head exam: Present: atraumatic, normocephalic - Eye Eye exam: Present: normal appearance - ENT ENT exam: Present: mucous membranes moist - Neck Neck exam: Present: normal inspection - Respiratory Respiratory exam: Present: normal lung sounds bilaterally. Absent: respiratory distress - Cardiovascular Cardiovascular Exam: Present: regular rate, normal rhythm. Absent: systolic murmur, diastolic murmur, rubs, gallop - GI/Abdominal GI/Abdominal exam: Present: soft, normal bowel sounds - Extremities Exam Extremities exam: Present: normal inspection - Back Exam Back exam: Present: normal inspection - Neurological Exam Neurological exam: Present: alert, oriented X3 - Psychiatric Psychiatric exam: Present: normal affect, normal mood - Skin Skin exam: Present: warm, dry, intact, normal color. Absent: rash ED Course Vital Signs 08/27/19 15:08 Temperature 98.6 F Pulse Rate 99 H Respiratory 18 Rate Blood Pressure 111/71 O2 Sat by Pulse 100 Oximetry ED Medical Decision Making - Lab Data Result diagrams: 08/27/19 15:49 08/27/19 15:49 - Medical Decision Making Labs 08/27/19 08/27/19 08/27/19 15:31 15:49 15:49 WBC 4.6 RBC 4.29 Hgb 11.8 Hct 37.1 MCV 87 MCH 28 MCHC 32 RDW 15.7 H Plt Count 309 Lymph % (Auto) 30.1 [place] % (Auto) 6.5 Eos % (Auto) 0.2 Baso % (Auto) 0.8 Lymph # 1.4 [place] # 0.3 Eos # 0.0 Baso # 0.0 Seg Neutrophils % 62.4 Seg Neutrophils # 2.9 Sodium 133 L Potassium 4.9 Chloride 100.5 Carbon Dioxide 16 L Anion Gap 21 BUN 6 L Creatinine 0.5 L Estimated GFR > 60 BUN/Creatinine Ratio 12 Glucose 90 Calcium 9.5 Total Bilirubin 0.50 AST 17 ALT 6 L Alkaline Phosphatase 63 Total Protein 9.0 H Albumin 4.1 Albumin/Globulin Ratio 0.8 Lipase 18 Urine Color Yellow Urine Turbidity Clear Urine pH 7.0 Ur Specific [place] 1.012 Urine Protein <15 mg/dl Urine Glucose (UA) Neg Urine Ketones Tr Urine Blood Neg Urine Nitrite Neg Urine Bilirubin Neg Urine Urobilinogen < 2.0 Ur Leukocyte Esterase Neg Urine WBC (Auto) 1.0 Urine RBC (Auto) 2.0 U Epithel Cells (Auto) 9.0 Urine Mucus Few Urine HCG, Qual Negative Vital Signs 08/27/19 15:08 Temperature 98.6 F Pulse Rate 99 H Respiratory 18 Rate Blood Pressure 111/71 O2 Sat by Pulse 100 Oximetry STOOL IN HER COLOSTOMY BAG IS BROWN SEMI FORMED NO BLOOD SHE IS AMBULATORY NON TOXIC NON ILL APPEARING NO FEVER NO TACHYCARDIA NO HYPOTENSION LAST SCAN 08/01 PT DID NOT FOLLOW UP WITH PER GI MD ON NO HOME MEDS 1L NS/MORPHINE/FLAGYL IN ER TAKING PO DC HOME WITH GI FOLLOW UP. - Differential Diagnosis A/C ABD PAIN Critical care attestation.: If time is entered above; I have spent that time in minutes in the direct care of this critically ill patient, excluding procedure time. ED Disposition Clinical Impression: Crohns disease Disposition: DC-01 TO HOME OR SELFCARE Is pt being admited?: No Does the pt Need Aspirin: No Condition: Stable Instructions: Abdominal Pain (ED) Additional Instructions: BLAND DIET TOLERATED STAY WELL HYDRATED ACTIVITY TOLERATED MEDS ORDERED TODAY FOLLOW UP WITH GI MD KARY FOLLOW UP WITH PCP OTC PAIN MEDICATIONS FOR PAIN Prescriptions: Sulfamethoxazole/Trimethoprim [Bactrim DS TAB] 1 each PO BID 3 Days #6 tablet Dicyclomine [Bentyl] 10 mg PO QID PRN #20 capsule PRN Reason: Pain Ondansetron [Zofran Odt] 4 mg PO Q6HR PRN #15 tab.rapdis PRN Reason: Nausea Referrals: DENAE IVERSON MD [Staff Physician] - 3-5 Days BOB BLAIR MD [Staff Physician] - 3-5 Days RITESH CHRIS MD [Staff Physician] - 3-5 Days Time of Disposition: 17:39
[2019-08-27 17:33] LABS: Alanine Aminotransferase 6 units/L (7-56); Albumin 4.1 g/dL (3.9-5); BUN/Creatinine Ratio 12; Blood Urea Nitrogen 6 mg/dL (7-17); Calcium 9.5 mg/dL (8.4-10.2); Hemolysis Index 11
[2019-08-27] MEDS ORDERED: diphenhydrAMINE 50 MG/ML VIAL ONE (17:54)
[2019-08-27] MEDS ORDERED: diphenhydrAMINE 50 MG/ML VIAL IV ONE (18:02)
== END 2019-08-27 19:51 | disposition home or self-care (01) ==
LOC: ED 13:05
DX: K50.90 Crohn's disease, unspecified, without complications (principal); K21.9 Gastro-esophageal reflux disease without esophagitis; J45.909 Unspecified asthma, uncomplicated; Z90.49 Acquired absence of other specified parts of digestive tract; Z98.890 Other specified postprocedural states; Z88.8 Allergy status to other drugs, medicaments and biological substances; Z79.899 Other long term (current) drug therapy
CPT/HCPCS: 36415; 80053; 81001; 81025; 83690; 85025; 96365; 96375; 99283; J1200; J2405; J7030; 96367

== ENCOUNTER 2020-06-21 01:48 | Emergency (ER) | payer MEDICARE ==
[2020-06-21 03:04] LABS: Basophils % (Auto) 0.6 % (0.0-1.8); Eosinophils # (Auto) 0.1 K/mm3 (0.0-0.4); Eosinophils % (Auto) 1.1 % (0.0-4.3); Hematocrit 35.2 % (30.3-42.9); Hemoglobin 11.4 gm/dl (10.1-14.3); Lymphocytes # (Auto) 3.1 K/mm3 (1.2-5.4); Lymphocytes % (Auto) 49.3 % (13.4-35.0); Mean Corpuscular HGB Conc 32 % (30-34); Mean Corpuscular Volume 83 fl (79-97); Monocytes # (Auto) 0.6 K/mm3 (0.0-0.8); Monocytes % (Auto) 8.8 % (0.0-7.3); Red Blood Count 4.27 M/mm3 (3.65-5.03); Red Cell Distribution Width 18.2 % (13.2-15.2)
[2020-06-21 03:10] LABS: Platelet Count 227 K/mm3 (140-440)
[2020-06-21] MEDS ORDERED: ONDANSETRON 4 MG ODT TAB PO ONE (03:25)
[2020-06-21] MEDS ORDERED: PANTOPRAZOLE 40 MG TAB PO ONE (03:25)
[2020-06-21] MEDS ORDERED: ACETAMINOPHEN 500 MG TAB PO ONE (03:25)
[2020-06-21 03:26] LABS: Alanine Aminotransferase 8 units/L (7-56); Albumin 4.4 g/dL (3.9-5); Blood Urea Nitrogen 13 mg/dL (7-17); Calcium 9.6 mg/dL (8.4-10.2); Hemolysis Index 11
[2020-06-21] MEDS ORDERED: DICYCLOMINE 10 MG CAP PO ONE (03:26)
--- NOTE | 2020-06-21 03:31 | Emergency Department Report ---
ED Abdominal Pain HPI - General Chief Complaint: Abdominal Pain Stated Complaint: ABDOMINAL PAIN Time Seen by Provider: 06/21/20 03:15 Source: patient Mode of arrival: Ambulatory Limitations: No Limitations - History of Present Illness Initial Comments: Chief complaint: stomach pain HPI: This is a 40-year-old female with history of Crohn's disease status post total colectomy and ileostomy 5 years ago who presents with epigastric central abdominal pain with vomiting. She has had poor appetite. Watery ostomy output. 8 out of 10 intermittent achy crampy pain. Gradual onset. No radiation. No change with movement. 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 Vuong. Since colectomy, she has not required maintenance medications for Crohn's disease. Past surgical history includes cholecystectomy and repair of anal fistula MD Complaint: abdominal pain -: Gradual, days(s) (2) Location: epigastric Radiation: none Severity: moderate Severity scale (0 -10): 8 Quality: cramping, aching Consistency: intermittent Worsens With: eating Associated Symptoms: nausea, vomiting - Related Data Previous Rx's Medication Instructions Recorded Last Taken Type Dicyclomine [Bentyl] 10 mg PO QID PRN #20 capsule 08/27/19 Unknown Rx Ondansetron [Zofran Odt] 4 mg PO Q6HR PRN #15 tab.rapdis 08/27/19 Unknown Rx Sulfamethoxazole/Trimethoprim 1 each PO BID 3 Days #6 tablet 08/27/19 Unknown Rx [Bactrim DS TAB] Famotidine [Acid Controller] 20 mg PO BID 14 Days #28 tablet 06/21/20 Unknown Rx Ondansetron [Zofran Odt] 4 mg PO Q8HR PRN #10 tab.rapdis 06/21/20 Unknown Rx Allergies Allergy/AdvReac Type Severity Reaction Status Date / Time aspirin Allergy Itching Verified 07/16/19 08:37 ibuprofen [From Motrin] Allergy Rash Verified 07/16/19 08:37 infliximab [From Remicade] Allergy ITCHING Verified 07/16/19 08:37 AND SWELLING morphine Allergy Rash Verified 07/16/19 08:37 naproxen sodium [From Aleve] Allergy Itching Verified 07/16/19 08:37 ED Review of Systems ROS: Stated complaint: ABDOMINAL PAIN Other details as noted in HPI Comment: All other systems reviewed and negative Constitutional: denies: fever, malaise Gastrointestinal: abdominal pain, nausea, vomiting. denies: diarrhea ED Past Medical Hx - Past Medical History Previous Medical History?: Yes Hx Hypertension: No Hx Heart Attack/AMI: No Hx Congestive Heart Failure: No Hx GERD: Yes (RARELY) Hx Renal Disease: No Hx Arthritis: Yes (lower back) Hx Seizures: No Hx Asthma: Yes (mild case) Hx HIV: No Additional medical history: Crohn's - Surgical History Past Surgical History?: Yes Hx Pacemaker: No Hx Internal Defibrillator: No Hx Cholecystectomy: Yes Hx Breast Surgery: Yes (Breast reduction) Additional Surgical History: bowel resection & colostomy 2003. Proctocolectomy with ileostomy placement January 2015 - Social History Smoking Status: Never Smoker Substance Use Type: None - Medications Home Medications: Home Medications Medication Instructions Recorded Confirmed Last Taken Type Dicyclomine [Bentyl] 10 mg PO QID PRN #20 capsule 08/27/19 Unknown Rx Ondansetron [Zofran Odt] 4 mg PO Q6HR PRN #15 tab.rapdis 08/27/19 Unknown Rx Sulfamethoxazole/Trimethoprim 1 each PO BID 3 Days #6 tablet 08/27/19 Unknown Rx [Bactrim DS TAB] Famotidine [Acid Controller] 20 mg PO BID 14 Days #28 tablet 06/21/20 Unknown Rx Ondansetron [Zofran Odt] 4 mg PO Q8HR PRN #10 tab.rapdis 06/21/20 Unknown Rx ED Physical Exam - General Limitations: No Limitations General appearance: alert, in no apparent distress - Head Head exam: Present: atraumatic, normocephalic - Eye Eye exam: Present: normal appearance - ENT ENT exam: Present: mucous membranes moist - Neck Neck exam: Present: normal inspection, full ROM - Respiratory Respiratory exam: Present: normal lung sounds bilaterally. Absent: respiratory distress, wheezes, rales, rhonchi - Cardiovascular Cardiovascular Exam: Present: regular rate, normal rhythm, normal heart sounds. Absent: systolic murmur, diastolic murmur, rubs, gallop - GI/Abdominal GI/Abdominal exam: Present: soft, normal bowel sounds, other (Ostomy present right lower quadrant). Absent: distended, tenderness, guarding, rebound - Extremities Exam Extremities exam: Present: normal inspection - Neurological Exam Neurological exam: Present: alert, oriented X3 - Psychiatric Psychiatric exam: Present: normal affect, normal mood - Skin Skin exam: Present: warm, dry, intact, normal color. Absent: rash ED Course Vital Signs 06/21/20 06/21/20 02:29 03:51 Temperature 98.6 F Pulse Rate 105 H Respiratory 18 18 Rate Blood Pressure 105/79 O2 Sat by Pulse 100 Oximetry ED Medical Decision Making - Lab Data Result diagrams: 06/21/20 02:43 06/21/20 02:43 - Medical Decision Making Ms. Grant is a 40-year-old female with history of Crohn's disease status post total colectomy ileostomy. She has recurrent epigastric pain. She denies history of peptic ulcer disease. However with recurrent pain considerations: Peptic ulcer disease versus irritable bowel versus pain due to adhesions No indication of acute inflammatory process according to my evaluation. I do not suspect obstruction. I recommended clear liquid diet supportive care instructions. I provided prescription for famotidine and Zofran. She understands follow-up with her personal meat products demonstrator. Critical care attestation.: If time is entered above; I have spent that time in minutes in the direct care of this critically ill patient, excluding procedure time. ED Disposition Clinical Impression: Abdominal pain, Crohns disease, Ileostomy in place Disposition: -01 TO HOME OR SELFCARE Is pt being admited?: No Does the pt Need Aspirin: No Condition: Stable Instructions: Abdominal Pain (ED) Prescriptions: Famotidine [Acid Controller] 20 mg PO BID 14 Days #28 tablet Ondansetron [Zofran Odt] 4 mg PO Q8HR PRN #10 tab.rapdis PRN Reason: Nausea Referrals: AMMY VUONG MD [Staff Physician] - 3-5 Days
[2020-06-21 03:39] LABS: BUN/Creatinine Ratio 19
[2020-06-21] MEDS ORDERED: HYDROcodone/ACETAMINOPHEN 5-325 MG TAB PO ONE (05:15)
[2020-06-21 05:40] VITALS: BP 115/67
== END 2020-06-21 05:35 | disposition home or self-care (01) ==
LOC: ED 01:48
DX: K50.90 Crohn's disease, unspecified, without complications (principal); K21.9 Gastro-esophageal reflux disease without esophagitis; M13.88 Other specified arthritis, other site; J45.909 Unspecified asthma, uncomplicated; Z88.6 Allergy status to analgesic agent
CPT/HCPCS: 36415; 80053; 83690; 84703; 85025; Q0162